=== PATIENT | female | born 2000 | race Caucasian/White ===

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

== ENCOUNTER 2023-11-25 11:25 | Outpatient (CLI) | payer OTHER, SELFPAY ==
[2023-11-25 14:47] LABS: Cholesterol 240 mg/dL (0-200); HDL Direct 44 mg/dL; Triglycerides 128 mg/dL (<150)
[2023-11-25 15:02] LABS: LDL Cholesterol Direct 157 mg/dL
[2023-11-29 13:28] LABS: Thyroid Peroxidase Antibodies 3 IU/mL (<9)
== END 2023-11-25 11:26 | disposition home or self-care (01) ==
LOC: ANHGOSHLAB 11:26
PROVIDERS: PCP Family Medicine; Visit Provider Family Medicine
DX: Z00.00 Encounter for general adult medical examination without abnormal findings (principal); E66.01 Morbid (severe) obesity due to excess calories; Z68.39 Body mass index [BMI] 39.0-39.9, adult
CPT/HCPCS: 36415; 80061; 84443; 86376